=== PATIENT | female | born 1940 | race Caucasian/White ===

== ENCOUNTER 2019-10-25 06:29 | Inpatient (IN) | payer MEDICARE, MEDICAID ==
[~2019-10-25] VITALS: Ht 165.1 cm; Wt 67.8 kg
[2019-10-25] VITALS (7 sets, daily range): BP systolic 139–208; BP diastolic 73–100
[2019-10-25 06:53] LABS: BASOPHILS % 0.5 % (0.0-2.0); HEMATOCRIT. 29.6 % (36.0-48.0); LYMPHOCYTES % 8.9 % (20.0-50.0); MEAN CORPUSCULAR HEMOGLOBIN 34.7 pg (28.0-32.0); MEAN CORPUSCULAR VOLUME 102.9 fL (81.0-99.0); MEAN PLATELET VOLUME 9.9 fl (7.4-10.4); MONOCYTES % 7.9 % (2.0-8.0); NEUTROPHILS % 78.7 % (40.0-76.0); PLATELET 291 x1000/uL (130-400); RED BLOOD CELL COUNT 2.87 mill/uL (4.2-5.4); RED CELL DISTRIBUTION WIDTH 15.7 % (11.6-14.6)
[2019-10-25 07:04] LABS: CHLORIDE 88 mEq/L (98-107)
[2019-10-25 08:17] LABS: BG BASE EXCESS -2.6 mmol/L (-2.0-2.0); BG CARBOXYHEMOGLOBIN 0.6 % (0.5-1.5); BG DEOXYHEMOGLOBIN 0.7 % (0.0-5.0); BG FRACTION INSPIRED OXYGEN 100; BG HCO3 ACT 21.6 mmol/L (22.0-26.0); BG METHEMOGLOBIN 0.3 % (0.0-1.5); BG OXYGEN SATURATION 99.3 % (92.0-98.5); BG OXYHEMOGLOBIN 98.4 % (94.0-97.0); BG PCO2 34.8 mmHg (35.0-45.0); BG PH 7.411 (7.350-7.450); BG PO2 273.2 mmHg (75.0-100.0); BG SAMPLE SITE RIGHT RADIAL; BG TOTAL HEMOGLOBIN 9.3 g/dL (12.0-18.0); BG VENT MODE MASK - CPAP; BG VENT RATE 12 set
[2019-10-25] MEDS ORDERED: IPRATROPIUM/ALBUTEROL 0.5-3(2.5)MG/3ML NEB HHN PRN (14:30)
[2019-10-25] MEDS ORDERED: ENOXAPARIN 40MG/0.4ML SYR SUBCUT SCH (14:30)
[2019-10-25] MEDS ORDERED: ACETAMINOPHEN 325MG TABLET PO PRN (14:30)
[2019-10-25] MEDS ORDERED: DIPHENHYDRAMINE 50MG/ML VIAL IV PRN (14:30)
[2019-10-25] MEDS ORDERED: NA PHOS,M-B/NA PHOS,DI-BA ENEMA 118ML PR PRN (14:30)
[2019-10-25] MEDS ORDERED: HYDROCODONE/ACETAMINOPHEN 5/325MG TABLET PO PRN (14:30)
[2019-10-25] MEDS ORDERED: ONDANSETRON HCL 4MG/2ML INJ IV PRN (14:30)
[2019-10-25] MEDS ORDERED: MAGNESIUM/ALUMINUM HYDROXIDE/SIMETHICONE 30ML UDC PO PRN (14:30)
[2019-10-25] MEDS ORDERED: LORAZEPAM 2MG/ML CPJ IV PRN (14:30)
[2019-10-25] MEDS ORDERED: GUAIFENESIN 200MG/10ML SUGAR FREE UDC PO PRN (14:30)
[2019-10-25] MEDS ORDERED: DOCUSATE SODIUM 100MG CAPSULE PO PRN (14:30)
[2019-10-25] MEDS ORDERED: MORPHINE SULFATE 2 MG/ML CPJ (NOT FOR IM USE) IV PRN (14:30)
[2019-10-25] MEDS ORDERED: SITA25TA3 PO (14:46)
[2019-10-25] MEDS ORDERED: METO-539 PO (14:46)
[2019-10-25] MEDS ORDERED: AMLO5TAB88 PO (14:46)
[2019-10-25] MEDS ORDERED: LORA10TA7 PO (14:46)
[2019-10-25] MEDS ORDERED: GLYB5TAB7 MT (14:48)
[2019-10-25] MEDS ORDERED: FOLI1TAB63 MT (14:48)
[2019-10-25] MEDS ORDERED: ATOR20TA65 PO (14:48)
[2019-10-25] MEDS ORDERED: LEVOFLOXACIN 500MG PREMIX 100 ML IV SCH (16:00)
[2019-10-25] MEDS: AMLODIPINE 5MG TABLET PO SCH (16:26)
[2019-10-25] MEDS: METOPROLOL TARTRATE 50MG TABLET PO SCH (16:27)
[2019-10-25] MEDS: ENOXAPARIN 30MG/0.3ML SYR SUBCUT SCH (16:27)
[2019-10-25] MEDS ORDERED: DEXTROSE 50% WATER 50ML SYRINGE IV PRN (17:00)
[2019-10-25] MEDS: BLOOD SUGAR DIAGNOSTIC STRIP TEST SCH ×2 (17:17→21:29)
[2019-10-25] MEDS ORDERED: INSULIN LISPRO 100 UNITS/ML SUBCUT SCH (17:20)
[2019-10-25] MEDS: CLONIDINE 0.1MG TABLET PO PRN (18:42)
[2019-10-25] MEDS: INSULIN LISPRO 100 UNITS/ML SUBCUT SCH (21:44)
[2019-10-26] VITALS (12 sets, daily range): BP systolic 112–156; BP diastolic 60–89
[2019-10-26] MEDS: BLOOD SUGAR DIAGNOSTIC STRIP TEST SCH ×4 (06:39→21:04)
[2019-10-26 07:00] LABS: BASOPHILS % 0.3 % (0.0-2.0); EOSINOPHILS % 1.4 % (0.0-5.0); HEMATOCRIT. 24.8 % (36.0-48.0); HEMOGLOBIN. 8.2 g/dL (12.0-16.0); LYMPHOCYTES % 9.5 % (20.0-50.0); MEAN CORPUSCULAR HEMOGLOBIN 33.8 pg (28.0-32.0); MEAN CORPUSCULAR VOLUME 102.6 fL (81.0-99.0); MEAN PLATELET VOLUME 9.3 fl (7.4-10.4); MONOCYTES % 6.9 % (2.0-8.0); NEUTROPHILS % 81.9 % (40.0-76.0); PLATELET 173 x1000/uL (130-400); RED BLOOD CELL COUNT 2.42 mill/uL (4.2-5.4); RED CELL DISTRIBUTION WIDTH 15.8 % (11.6-14.6)
[2019-10-26 07:27] LABS: CHLORIDE 97 mEq/L (98-107)
[2019-10-26] MEDS: METOPROLOL TARTRATE 50MG TABLET PO SCH (08:01)
[2019-10-26] MEDS: INSULIN LISPRO 100 UNITS/ML SUBCUT SCH ×4 (08:02→21:06)
[2019-10-26] MEDS: ASPIRIN 81MG EC TABLET PO SCH (08:02)
[2019-10-26] MEDS: AMLODIPINE 5MG TABLET PO SCH (08:02)
[2019-10-26] MEDS: FOLIC ACID/VITAMIN B COMP W-C TABLET PO SCH (08:02)
[2019-10-26] MEDS ORDERED: VANCOMYCIN 1 G PREMIX 200 ML IV SCH (09:00)
[2019-10-26] MEDS ORDERED: ALTEPLASE 2MG/VIAL ITC NR (09:30)
[2019-10-26] MEDS ORDERED: ALTEPLASE 100MG/VIAL IV ONE (09:30)
[2019-10-26] MEDS: ENOXAPARIN 30MG/0.3ML SYR SUBCUT SCH (17:37)
[2019-10-26] MEDS ORDERED: VANCOMYCIN 1250MG in DEXTROSE 5% WATER 250ML IV NR (18:00)
[2019-10-26] MEDS ORDERED: EPOETIN ALFA 10000UNITS/ML VIAL SUBCUT SCH (21:00)
[2019-10-27] VITALS (11 sets, daily range): BP systolic 112–182; BP diastolic 59–126
[2019-10-27] MEDS: CLONIDINE 0.1MG TABLET PO PRN ×2 (05:04→12:53)
[2019-10-27] MEDS: BLOOD SUGAR DIAGNOSTIC STRIP TEST SCH ×2 (07:13→11:50)
[2019-10-27 07:17] LABS: BASOPHILS % 0.9 % (0.0-2.0); EOSINOPHILS % 6.1 % (0.0-5.0); HEMATOCRIT. 25.7 % (36.0-48.0); HEMOGLOBIN. 8.7 g/dL (12.0-16.0); LYMPHOCYTES % 12.8 % (20.0-50.0); MEAN CORPUSCULAR HEMOGLOBIN 34.3 pg (28.0-32.0); MEAN CORPUSCULAR VOLUME 101.7 fL (81.0-99.0); MEAN PLATELET VOLUME 9.3 fl (7.4-10.4); NEUTROPHILS % 68.2 % (40.0-76.0); PLATELET 203 x1000/uL (130-400); RED BLOOD CELL COUNT 2.53 mill/uL (4.2-5.4); RED CELL DISTRIBUTION WIDTH 15.6 % (11.6-14.6)
[2019-10-27] MEDS: ASPIRIN 81MG EC TABLET PO SCH (08:27)
[2019-10-27] MEDS: AMLODIPINE 5MG TABLET PO SCH (08:27)
[2019-10-27] MEDS: FOLIC ACID/VITAMIN B COMP W-C TABLET PO SCH (08:28)
[2019-10-27] MEDS: METOPROLOL TARTRATE 50MG TABLET PO SCH (08:28)
[2019-10-27] MEDS: INSULIN LISPRO 100 UNITS/ML SUBCUT SCH ×2 (08:34→12:50)
[2019-10-27] MEDS ORDERED: CLONIDINE 0.2MG TABLET PO SCH (14:00)
[2019-10-27] MEDS: ENOXAPARIN 30MG/0.3ML SYR SUBCUT SCH (16:00)
[2019-10-27] MEDS ORDERED: LEVOFLOXACIN 250MG PREMIX 50 ML IV SCH (16:00)
[2019-10-27] MEDS ORDERED: METOPROLOL TARTRATE 50MG TABLET PO SCH (21:00)
[2019-10-27] MEDS ORDERED: AMLODIPINE 5MG TABLET PO SCH (21:00)
== END 2019-10-27 17:37 | disposition home or self-care (01) | DRG 189 ==
LOC: ER 06:29 → EDBEDREQTM 07:56 → ENRESERV 10:59 → 3WST 11:37
PROVIDERS: ADMIT Internal Medicine; ATTEND Internal Medicine
PROC: 5A09357 Assistance with Respiratory Ventilation, Less than 24 Consecutive Hours, Continuous Positive Airway Pressure (ICD-10-PCS; principal; 2019-10-25)
PROC: 5A1D70Z Performance of Urinary Filtration, Intermittent, Less than 6 Hours Per Day (ICD-10-PCS; 2019-10-25)
PROC: 5A1D70Z Performance of Urinary Filtration, Intermittent, Less than 6 Hours Per Day (ICD-10-PCS; 2019-10-25)
DX: J96.00 Acute respiratory failure, unspecified whether with hypoxia or hypercapnia (principal); N18.6 End stage renal disease; I13.2 Hypertensive heart and chronic kidney disease with heart failure and with stage 5 chronic kidney disease, or end stage renal disease; E46 Unspecified protein-calorie malnutrition; I48.0 Paroxysmal atrial fibrillation; E11.22 Type 2 diabetes mellitus with diabetic chronic kidney disease; I50.9 Heart failure, unspecified; I25.10 Atherosclerotic heart disease of native coronary artery without angina pectoris; E78.5 Hyperlipidemia, unspecified; E87.70 Fluid overload, unspecified; Z99.2 Dependence on renal dialysis; Z68.24 Body mass index [BMI] 24.0-24.9, adult; Z79.899 Other long term (current) drug therapy
CPT/HCPCS: 36415; 36600; 71045; 80048; 82375; 82805; 82962; 83880; 84484; 87804; 93005; 93306; 93970; 96374; 99291; A6261; J0885; J1650; J1815; J1956; J2997; J3370; J7060